=== PATIENT | female | born 1990 | race Caucasian/White ===

== ENCOUNTER 2020-03-17 09:57 | Emergency (ER) | payer OTHER ==
[2020-03-17 10:16] VITALS: BP 125/62; PULSE 80; TEMP 97.9; BMI 21.2
[2020-03-17] MEDS ORDERED: SODIUM CHLORIDE 1,000 ML IV STA (10:53)
[2020-03-17 11:14] LABS: BASO % 0.6 % (0-2.0); EOS % 0.2 % (0-4.5); HEMOGLOBIN 14.1 GM/dL (10.7-15.3); LYMPH % 18.9 % (8-40); MCH 33.4 pg (25.7-33.7); MCHC 34.4 g/dl (32.0-36.0); MEAN CELL VOLUME 97.2 fl (80-96); MEAN PLT VOLUME 7.4 fl (7.5-11.1); NEUT % 73.3 % (42.8-82.8); PLATELET COUNT 285 K/MM3 (134-434); RBC 4.22 M/mm3 (3.60-5.2); RDW 13.2 % (11.6-15.6); WHITE BLOOD COUNT 6.8 K/mm3 (4.0-10.0)
[2020-03-17 11:23] LABS: PROTHROMBIN TIME (PATIENT) 12.3 SEC (9.7-13.0)
[2020-03-17 11:25] LABS: ACTIVATED PTT 26.4 SECONDS (25.2-36.5)
[2020-03-17 11:38] LABS: HCG,QUALITATIVE URINE Positive
[2020-03-17 11:39] LABS: URINE APPEARANCE CLOUDY; URINE BILIRUBIN NEGATIVE (NEGATIVE); URINE COLOR YELLOW; URINE GLUCOSE (UA) NEGATIVE (NEGATIVE); URINE KETONE 3+ (NEGATIVE); URINE LEUK ESTERASE NEGATIVE (NEGATIVE); URINE NITRITE NEGATIVE (NEGATIVE); URINE PROTEIN TRACE (NEGATIVE)
[2020-03-17 11:48] LABS: POTASSIUM 3.3 mmol/L (3.5-5.1)
[2020-03-17 11:50] LABS: ALBUMIN 4.1 g/dl (3.4-5.0); CALCIUM 9.1 mg/dL (8.5-10.1)
[2020-03-17 11:54] LABS: CREATININE 0.7 mg/dL (0.55-1.3)
[2020-03-17 11:55] LABS: BILIRUBIN,TOTAL 0.7 mg/dL (0.2-1); TOT PROT 7.7 g/dl (6.4-8.2)
== END 2020-03-17 12:58 | disposition home or self-care (01) ==
LOC: JER 09:57
PROC: 3E0337Z Introduction of Electrolytic and Water Balance Substance into Peripheral Vein, Percutaneous Approach (ICD-10-PCS; principal; 2020-03-17)
DX: O26.851 Spotting complicating pregnancy, first trimester (principal)
CPT/HCPCS: 36415; 76817-TC; 80053; 81003; 84702; 84703; 85025; 85610; 85730; 86850; 86900; 86901; 87086; 99284-25